=== PATIENT | male | born 1970 | race Caucasian/White ===

== ENCOUNTER 2022-12-30 20:02 | Emergency (ER) | payer OTHER, MEDICAID, SELFPAY ==
[2022-12-30 20:07] VITALS: BP 173/116; PULSE 91; RESP 20; TEMP 36.7; O2SAT 100; BMI 28.8
[2022-12-30] MEDS: TET,DIPH,PERTUSS(ACELL),VAC/PF 0.5 ML SYRINGE IM (20:30)
--- NOTE | 2022-12-30 20:41 | DI.RAD.S_ITS ---
PROCEDURE: XR FOREARM RT 2V INDICATIONS: dog bite TECHNIQUE: 2 views of the forearm were acquired. COMPARISON: None. FINDINGS: Bones: No fractures or dislocations. No suspicious bony lesions. Soft tissues: No radiopaque foreign bodies. No definite soft tissue gas. No suspicious soft tissue calcifications or masses. IMPRESSION: 1. No fracture or radiopaque foreign bodies. Dictated by: Geovanni Castillo M.D. on 12/30/2022 at 22:20 Approved by: Geovanni Castillo M.D. on 12/30/2022 at 22:21
--- NOTE | 2022-12-30 23:35 | ED_ITS ---
HPI - Animal Bite General Chief Complaint: Animal Bite Stated Complaint: Dog bite Time Seen by Provider: 12/30/22 23:20 Source: patient Mode of arrival: Family Vehicle History of Present Illness HPI narrative: 52-year-old gentleman was at home this evening when his dog a lab got into an argument with a pit bull and he got in between the 2. One of the dogs but his right forearm and there is a puncture wound over the retinaculum on the left side and a small puncture wound over the dorsal surface of the distal forearm. Bleeding is controlled. He does have some swelling into the thenar eminence but is otherwise neurovascularly intact. Related Data Previous Rx's Medication Instructions Recorded amoxicillin 875 mg-potassium 1 tab PO BID #14 tabs 12/30/22 clavulanate 125 mg tablet Allergies Allergy/AdvReac Type Severity Reaction Status Date / Time No Known Drug Allergies Allergy Verified 12/30/22 20:16 Review of Systems Review of Systems Narrative: Pertinent positive and negative findings as per HPI Patient History Social History Smoking Status: Never smoker Smoking Status: Never smoker alcohol intake frequency: a few times a week Alcohol type: beer Substance Use Type: marijuana Exam Initial Vital Signs Initial Vital Signs: Vital Signs Temperature 98.1 F 12/30/22 20:07 Pulse Rate 91 H 12/30/22 20:07 Respiratory Rate 20 12/30/22 20:07 Blood Pressure 173/116 H 12/30/22 20:07 Pulse Oximetry 100 12/30/22 20:07 Oxygen Delivery Method Room Air 12/30/22 20:07 General: Alert appropriate in no acute distress Respiratory: Able to speak in full sentences, no obvious respiratory distress Skin: No obvious rashes, warm and dry Neurologic: Grossly intact no obvious asymmetries or abnormalities Psych: appropriate insight and affect, cooperative Extremity: RIght forearm is examined. He is a minor puncture wound over the retinaculum crease without evidence of tendon blood vessel or nerve involvement. Puncture wound over the distal portion of the forearm again no evidence of deeper tissue injury. He is neurovascularly intact. Course Orders Ordered: ED Orders 12/30/22 20:41 XR forearm RT 2V Stat Discontinued Medications Diphtheria/Tetanus/Acell Pertussis (Tet,Diph,Pertuss(Acell),Vac/Pf 0.5 Ml Syringe) 0.5 ml IM .ONCE ONE Stop: 12/30/22 20:20 Last Admin: 12/30/22 20:30 Dose: 0.5 ml Documented By: CHARLEE Vital Signs Vital signs: Vital Signs - 8 hr 12/30/22 20:07 Temperature 98.1 F Pulse Rate 91 H Respiratory Rate 20 Blood Pressure 173/116 H Pulse Oximetry 100 Oxygen Delivery Method Room Air MDM - Animal Bite MDM Narrative Medical decision making narrative: CC: Dog bite, no acute issue uncertain prognosis Data collected from: patient, Differential considered: Simple dog bite, deeper lacerations, tendon involvement muscle and vascular involvement Exam documented above, pertinent findings include: Puncture wounds, some swelling over the thenar eminence. Neurovascularly intact Imaging studies independently reviewed: No evidence of bony injury or foreign body on forearm x-rays Treatments: Tdap, Percocet, ibuprofen and initial dose of Augmentin all given Discussion: Puncture wounds from dog bite distal forearm right side. Tetanus is updated. Wounds are dressed. He will begin on Augmentin. We discussed keeping the wound elevated, ibuprofen and Tylenol for pain control. Questions are answered and he is safe for discharge home Of note, blood pressure was initially elevated, it is coming down. Did discuss this with the patient and recommended outpatient blood pressure testing. Discharge Plan Departure Patient Disposition: Home Clinical Impression: Dog bite Qualifiers: Encounter type: initial encounter Qualified Code(s): W54.0XXA - Bitten by dog, initial encounter Instructions: Tetanus, Diphtheria, Pertussis (Tdap) Vaccine, DI for Dog Bite Activity Restrictions/Additional Instructions: Thank you for coming in today I am glad wounds did not need any additional repair today. New treated the initial wounds very appropriately. From here forward, please use just antibiotic ointment and Band-Aid or dressing over the wounds. Your tetanus status was updated today. Unless you have another specific tetanus risk injury, you do not need another 1 until 2032 With animal bites, the potential for infection is quite high. I have started you on Augmentin with the 1st dose given in the emergency department. You will need an additional 7 days. This prescription was electronically transmitted to [facility] in [place]. Using 400 mg of ibuprofen (2 [id number] pills) and 1 Tylenol every 6 hours can be very helpful in controlling pain. If you are having throbbing in the hand please keep it elevated above the level of your heart to try to reduce throbbing If there is any sign of infection including purulent drainage, increasing swelling or red streaks up your arm you do need to return to the emergency department. Prescriptions: New amoxicillin-pot clavulanate 875-125 mg tablet 1 tab PO BID Qty: 14 0RF Stand Alone Forms: Patient Portal/API
[2022-12-30] MEDS: BACITRACIN OINT 0.9 GM PCKT 1 APPLIC TOP (23:50)
[2022-12-30] MEDS: AMOXICILLIN/CLAV 875/125 MG 1 TAB PO (23:50)
[2022-12-30] MEDS: IBUPROFEN 400 MG TABLET PO (23:50)
[2022-12-30] MEDS: ACETAMINOPHEN 325 MG TABLET PO (23:51)
[2022-12-30 23:52] VITALS: BP 182/96; PULSE 104; RESP 16; O2SAT 97
[2022-12-30] MEDS: OXYCODONE/ACETAMINOPHEN 5/325 TABLET 1 TAB PO (23:52)
== END 2022-12-31 00:03 | disposition home or self-care (01) ==
PROVIDERS: Emergency Provider Emergency Medicine
DX: S51.851A Open bite of right forearm, initial encounter (principal); W54.0XXA Bitten by dog, initial encounter; Z23 Encounter for immunization
CPT/HCPCS: 73090; 90471; 99283; 90715